=== PATIENT | female | born 1980 | race Hispanic/Latino ===

== ENCOUNTER 2017-07-23 19:28 | Emergency (ER) | payer SELFPAY ==
[2017-07-23] MEDS ORDERED: LEVETIRACETAM 500 MG TABLET PO ONE (20:55)
== END 2017-07-23 22:19 | disposition home or self-care (01) ==
LOC: EDH 19:28
DX: S00.03XA Contusion of scalp, initial encounter (principal); G40.802 Other epilepsy, not intractable, without status epilepticus; I10 Essential (primary) hypertension; Z72.0 Tobacco use; G89.29 Other chronic pain; W18.39XA Other fall on same level, initial encounter; Y93.89 Activity, other specified; Y92.89 Other specified places as the place of occurrence of the external cause; Y99.8 Other external cause status
CPT/HCPCS: 70450

== ENCOUNTER 2020-12-05 11:49 | Emergency (ER) | payer OTHER ==
[~2020-12-05] VITALS: Ht 162.6 cm; Wt 81.6 kg
[2020-12-05 12:13] VITALS: BP 159/100
[2020-12-05] MEDS ORDERED: 0.9%NACL 1000ML 1,000 ML IV SCH (12:30)
[2020-12-05] MEDS ORDERED: LORAZEPAM 2 MG/ML 1 ML VIAL IVP SCH (12:30)
[2020-12-05 12:43] LABS: BASOPHILS % (AUTO) 0.6 % (0.0-5.0); EOSINOPHILS % (AUTO) 1.6 % (0.0-8.0); HEMATOCRIT 42.3 % (36-48); LYMPHOCYTES % (AUTO) 10.6 % (21.0-51.0); MEAN CORPUSCULAR HEMOGLOBIN 28.6 pg (27.0-33.0); MEAN CORPUSCULAR HGB CONC 32.2 g/dL (32.0-36.0); MEAN CORPUSCULAR VOLUME 89.1 fL (79-99); MONOCYTES % (AUTO) 6.4 % (3.0-13.0); NEUTROPHILS % (AUTO) 80.1 % (40.0-77.0); PLATELET COUNT (AUTO) 249 K/uL (130-400); RED BLOOD CELL COUNT(AUTO) 4.75 MIL/uL (4.00-5.50); RED CELL DISTRIBUTION WIDTH 13.2 % (11.0-15.5); WHITE BLOOD COUNT (AUTO) 10.3 K/uL (4.8-10.8)
[2020-12-05 13:04] LABS: CREATININE 1.1 mg/dL (0.5-1.5); POTASSIUM 4.3 mmol/L (3.5-5.1)
[2020-12-05 13:09] LABS: BILIRUBIN,TOTAL 0.2 mg/dL (0.2-1.0); TOTAL PROTEIN, SERUM 8.2 g/dL (6.0-8.3)
[2020-12-05 13:24] LABS: APPEARANCE,URINE Clear (CLEAR); BILIRUBIN,URINE Negative (NEGATIVE); COLOR,URINE Yellow (YELLOW); GLUCOSE, URINE (UA) Negative (NEGATIVE); KETONES,URINE Trace mg/dL (NEGATIVE); LEUKOCYTE ESTERASE ,URINE Negative (NEGATIVE); NITRATE,URINE Negative (NEGATIVE); OCCULT BLOOD,URINE Small (NEGATIVE); PH,URINE 5.5 (5.0-8.0); PROTEIN,URINE POS 2+ mg/dL (NEGATIVE)
[2020-12-05 13:31] LABS: AMPHET/METH SCREEN,URINE NEGATIVE (NEGATIVE); BARBITURATE SCREEN, URINE NEGATIVE (NEGATIVE); BENZODIAZEPINES SCREEN,URINE NEGATIVE (NEGATIVE); CANNABINOID SCREEN,URINE NEGATIVE (NEGATIVE); COCAINE SCREEN,URINE NEGATIVE (NEGATIVE); OPIATE SCREEN,URINE NEGATIVE (NEGATIVE); PHENCYCLIDINE SCREEN,URINE NEGATIVE (NEGATIVE)
[2020-12-05 13:44] LABS: BACTERIA,URINE Few /HPF (None Seen)
[2020-12-05 13:45] LABS: WBC,URINE 0-1 /HPF (0-1)
[2020-12-05] MEDS ORDERED: LEVETIRACETAM 1,500 MG in 0.9%NACL 100ML 100 ML IV SCH (14:00)
[2020-12-05] MEDS ORDERED: LEVE-43 PO (14:05)
[2020-12-05 14:24] VITALS: BP 162/92
== END 2020-12-05 14:39 | disposition home or self-care (01) ==
LOC: EDH 11:49
DX: G40.909 Epilepsy, unspecified, not intractable, without status epilepticus (principal); I10 Essential (primary) hypertension; F17.210 Nicotine dependence, cigarettes, uncomplicated; Z79.899 Other long term (current) drug therapy
CPT/HCPCS: 36415; 70450; 71045; 80053; 80305; 81001; 84484; 84703; 85025; 86140; 96365; 96366; 96375; 99285; J1953; J2060

== ENCOUNTER 2024-05-29 19:18 | Emergency (ER) | payer BC ==
[~2024-05-29] VITALS: Ht 162.6 cm; Wt 84.8 kg
[~2024-05-29 19:18] MED LIST: LEVE-43 PO
[2024-05-29] MEDS: metoCLOPRAmide 10 MG/2 ML VIAL IVP ONE (19:56)
[2024-05-29 20:07] LABS: BASOPHILS # (AUTO) 0.05 K/uL (0.00-0.20); BASOPHILS % (AUTO) 0.4 % (0.0-5.0); EOSINOPHILS # (AUTO) 0.06 K/uL (0.00-0.70); EOSINOPHILS % (AUTO) 0.5 % (0.0-8.0); HEMATOCRIT 39.3 % (36-48); IMMATURE GRANULOCYTE ABSOLUTE 0.04 K/uL (0-1); LYMPHOCYTES # (AUTO) 2.5 K/uL (1.0-4.8); LYMPHOCYTES % (AUTO) 20.3 % (21.0-51.0); MEAN CORPUSCULAR HEMOGLOBIN 27.9 pg (27.0-33.0); MEAN CORPUSCULAR HGB CONC 32.6 g/dL (32.0-36.0); MEAN CORPUSCULAR VOLUME 85.6 fL (79-99); MONOCYTES # (AUTO) 0.8 K/uL (0.1-1.0); MONOCYTES % (AUTO) 6.6 % (3.0-13.0); NEUTROPHILS # (AUTO) 8.7 K/uL (1.8-7.7); NEUTROPHILS % (AUTO) 71.9 % (40.0-77.0); PLATELET COUNT (AUTO) 274 K/uL (130-400); RED BLOOD CELL COUNT(AUTO) 4.59 MIL/uL (4.00-5.50); RED CELL DISTRIBUTION WIDTH 14.6 % (11.0-15.5); WHITE BLOOD COUNT (AUTO) 12.1 K/uL (4.8-10.8)
[2024-05-29 20:11] LABS: CREATININE 1.2 mg/dL (0.5-1.0); POTASSIUM 3.6 mmol/L (3.5-5.1)
[2024-05-29 20:13] LABS: ALBUMIN 3.9 g/dL (3.5-5.0); BILIRUBIN,TOTAL 0.2 mg/dL (0.2-1.0); MAGNESIUM 1.8 mg/dL (1.80-2.40); TOTAL PROTEIN, SERUM 8.3 g/dL (6.0-8.3)
--- NOTE | 2024-05-29 20:52 | HMCIMG ---
INDICATION: cp TECHNIQUE: CHEST 1VW COMPARISON: 12/05/2020 FINDINGS/IMPRESSION: No acute consolidation or pleural effusion. Cardiac silhouette is within normal limits. Mild degenerative changes of the spine. The visualized upper abdomen appears unremarkable.
[2024-05-29] MEDS: hydrALAZine 20MG/ML VIAL IV ONE (22:13)
[2024-05-29] MEDS: LAbetaLOL 20MG SYG IV ONE (23:04)
--- NOTE | 2024-05-29 23:10 | NUR ---
PT PROMPTING TO GO AMA SHE IS WORRIED ABOUT HER 13 YR/OLD SON WITH AUTISM AT HOME. SHE SAID SHE IS JUST GOING TO SEE HER PRIMARY IN THE MORNING. BP POST LABETALOL 131/76, TROP FROM 54 TO 56, DR MARTINEZ AWARE. PT STABLE UPON DC, NIL COMPLAINT CHEST PAIN, AND LIGHTHEADEDNESS IS 'WAY BETTER' PER PT WHEN SHE FIRST CAME IN. SECURED AMA FORM, INFORMED DAYSI.
[2024-05-29 23:16] VITALS: BP 131/76; PULSE 100; RESP 18; TEMP 99; O2SAT 97
--- NOTE | 2024-05-29 23:20 | ERN ---
ED Note History of Present Illness Stated Complaint: MULTIPLE COMPLAINTS Chief Complaint: Hypertension Time Seen by MD: 19:42 Allergies: Coded Allergies: No Known Allergies (Unverified Allergy, Unknown, 12/05/20) Home Meds Active Scripts Levetiracetam (Keppra) 500 Mg Tablet, 500 MG PO BID, #60 TAB Prov:SAUL KINGJean Claude FERRELL 12/05/20 Past Medical History Dictation 44-year-old female with past medical history of high blood pressure, anxiety, depression presents with presyncope, headache and elevated blood pressure. Patient denies fevers, nausea, vomiting diaphoresis, focal neurological defici ts, abdominal pain, chest pain Past Medical History: Anxiety, Depression, Hypertension, Seizure Surgical History: None Family History: Negative Social History: Negative Review of System Dictation See HPI Initial Vital Sign VS Vital Signs Date Time Temp Pulse Resp B/P (MAP) Pulse Ox O2 Delivery O2 Flow Rate FiO2 05/29/24 19:19 98.1 106 17 211/124 96 Room Air* 0 21 Physical Exam Dictation Chronically ill-appearing, normal BMI, lungs clear to auscultation, symmetrical breath sounds, abdomen is soft, nontender, non peritoneal a and O x4 Results (Laboratory/Radiology) Laboratory/Radiology Laboratory Tests Test 05/29/24 19:34 05/29/24 22:48 White Blood Count 12.1 K/uL (4.8-10.8) H Red Blood Count 4.59 MIL/uL (4.00-5.50) Hemoglobin 12.8 g/dL (12.0-16.0) Hematocrit 39.3 % (36-48) Mean Corpuscular Volume 85.6 fL (79-99) Mean Corpuscular Hemoglobin 27.9 pg (27.0-33.0) Mean Corpuscular Hemoglobin Concent 32.6 g/dL (32.0-36.0) Red Cell Distribution Width 14.6 % (11.0-15.5) Platelet Count 274 K/uL (130-400) Mean Platelet Volume 10.9 fL (7.5-10.5) H Immature Granulocyte % (Auto) 0.3 % (0-1) Neutrophils (%) (Auto) 71.9 % (40.0-77.0) Lymphocytes (%) (Auto) 20.3 % (21.0-51.0) L Monocytes (%) (Auto) 6.6 % (3.0-13.0) Eosinophils (%) (Auto) 0.5 % (0.0-8.0) Basophils (%) (Auto) 0.4 % (0.0-5.0) Neutrophils # (Auto) 8.7 K/uL (1.8-7.7) H Lymphocytes # (Auto) 2.5 K/uL (1.0-4.8) Monocytes # (Auto) 0.8 K/uL (0.1-1.0) Eosinophils # (Auto) 0.06 K/uL (0.00-0.70) Basophils # (Auto) 0.05 K/uL (0.00-0.20) Absolute Immature Granulocyte (auto 0.04 K/uL (0-1) Nucleated Red Blood Cells 0.0 % (0.0-0.19) Sodium Level 138 mmol/L (136-145) Potassium Level 3.6 mmol/L (3.5-5.1) Chloride Level 102 mmol/L (101-111) Carbon Dioxide Level 27 mmol/L (21-32) Blood Urea Nitrogen 20 mg/dL (7-18) H Creatinine 1.2 mg/dL (0.5-1.0) H Glomerular Filtration Rate Calc 57 mL/min (>90) Random Glucose 123 mg/dL (70-105) H Total Calcium 9.3 mg/dL (8.5-10.1) Magnesium Level 1.80 mg/dL (1.80-2.40) Total Bilirubin 0.2 mg/dL (0.2-1.0) Aspartate Amino Transf (AST/SGOT) 16 U/L (10-37) Alanine Aminotransferase (ALT/SGPT) 13 U/L (12-78) Alkaline Phosphatase 117 U/L (50-136) Troponin I High Sensitivity 54 ng/L (4-50) *H 56 ng/L (4-50) *H Total Protein 8.3 g/dL (6.0-8.3) Albumin 3.9 g/dL (3.5-5.0) ED Course ED Course Orders Procedure Category Date Status Time 12 Lead Ekg Tracing- EKG 05/29/24 Logged Technical 19:44 Troponin I High LAB 05/29/24 Complete Sensitivity 19:45 Cbc With Differential LAB 05/29/24 Complete 19:45 Comprehensive LAB 05/29/24 Complete Metabolic Panel 19:45 Magnesium LAB 05/29/24 Complete 19:45 Chest 1vw RAD 05/29/24 Resulted 19:45 Metoclopramide 10 PHA 05/29/24 Complete Mg/2 Ml Vial (Reglan 1 20:00 Hydralazine 20mg Inj PHA 05/29/24 Complete (Apresoline 20mg In 22:00 Troponin I High LAB 05/29/24 Complete Sensitivity 22:05 Labetalol 20mg Syg PHA 05/29/24 Complete (Trandate 20mg Syg) 23:00 Current Medications Medications (Trade) Dose Ordered Sig/Fran Route PRN Reason Start Time Stop Time Status Last Admin Dose Admin Hydralazine HCl (APRESOLine 20MG INJ) 20 mg ONCE ONCE IV 05/29/24 22:00 05/29/24 22:01 DC 05/29/24 22:13 Labetalol HCl (TRANdate 20MG SYG) 20 mg ONCE ONCE IV 05/29/24 23:00 05/29/24 23:01 DC 05/29/24 23:04 Metoclopramide HCl (regLAN 10MG IV) 10 mg ONCE ONCE IVP 05/29/24 20:00 05/29/24 20:01 DC 05/29/24 19:56 Vital Signs Date Time Temp Pulse Resp B/P (MAP) Pulse Ox O2 Delivery O2 Flow Rate FiO2 05/29/24 23:04 100 189/80 05/29/24 23:01 99.0 100 18 189/88 97 Room Air* 0 21 05/29/24 21:00 99.0 103 18 216/141 98 Room Air* 0 21 05/29/24 19:20 98.1 106 17 211/124 96 Room Air 0 05/29/24 19:19 98.1 106 17 211/124 96 Room Air* 0 21 Medical Decision Making MDM ddx: STEMI versus NSTEMI versus hypertensive crisis versus sepsis All images interpreted by me and all diagnostics interpreted by me unless otherwise stated EK05/29/2024; 1924 Sinus tachycardia 104 beats per minute, normal axis, prolonged QT, nonspecific ST-T changes EKG nonspecific. Troponin elevated to 54. Patient is having STEMI. Likely secondary to hypertensive crisis. Patient's blood pressure is critically high with a systolic number greater than 200. Patient given IV hydralazine with minor improvement. Chest x-ray shows no acute cardiopulmonary pathology. Doubt pneumonia. Doubt CHF. Electrolytes within normal limits. Doubt electrolyte derangement. We will repeat troponin Upon re-evaluation, patient's troponin doubt from 54-56. This is less than two delta five. Patient's blood pressure now controlled with another dose of hydralazine and labetalol. Recommend admission to patient for further management of NSTEMI. At this time, patient prefers to follow up outpatient with machine printer. Encouraged patient to stay in hospital. Patient reiterates her desire to leave after demonstrating capacity. Patient will be discharged home. Return precautions given. Invited and answered all questions prior to discharge. Patient is leaving against medical advice. DX & DISP Disposition: Discharge Departure Impression: Primary Impression: Hypertensive crisis Additional Impression: NSTEMI (non-ST elevated myocardial infarction) Critical Time: 30 minutes Condition: Against Medical Advice Additional Instructions: Please return to emergency department immediately if chest pain worsens, you have lightheadedness, nausea, vomiting, sweating, abdominal pain, shortness of breath. Please follow up with primary care physician and machine printer at next available appointment. Please return to emergency department immediately if you change your mind about further evaluation management. Referrals: SELF,REFERRAL (PCP) Time of Disposition: 23:20 ERIC BONDS DO May 29, 2024 23:20
--- NOTE | 2024-05-30 06:07 | EKG ---
[facility] Test Date: 2024-05-29 Test Time: 19:25:42 Pat Name: MAGGY HAM Department: ED Room: Gender: F Recycling Coordinator: [id number] : 1980 Requested By: ERIC BONDS Order Number: [id number] Reading MD: Blayne Luna Measurements Intervals [place] Rate: 104 P: 3 RI: 136 QRS: 57 QRSD: 102 T: 258 QT: 388 QTc: 512 Interpretive Statements Pacemaker spikes or artifacts Sinus tachycardia Probable left ventricular hypertrophy Prolonged QT interval Compared to ECG 12/05/2020 11:55:02 Prolonged QT interval now present T-wave abnormality no longer present Electronically Signed On 05-30-2024 14:08:51 EMPLOYEE SERVICES MANAGER by Blayne Luna Please click the below link to view image of tracing.
== END 2024-05-29 23:22 | disposition left against medical advice (07) ==
LOC: EDH 19:18
DX: I21.4 Non-ST elevation (NSTEMI) myocardial infarction (principal); I16.9 Hypertensive crisis, unspecified; I10 Essential (primary) hypertension; Z79.899 Other long term (current) drug therapy; Z95.0 Presence of cardiac pacemaker
CPT/HCPCS: 99291; 96374; 96375; 83735; 84484 ×2; 80053; 85025; 36415; 71045; 93005; J0360; J2765